=== PATIENT | female | born 2000 | race Caucasian/White ===

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

== ENCOUNTER 2024-08-24 08:22 | Outpatient (AMB) | payer OTHER, SELFPAY ==
--- OUTSIDE RECORDS SUMMARY | 2024-08-24 08:28 | XMS_ITS ---
Author Organization [facility] Address [address] [place] [address] Care Team Providers Care Cell Installer Name Role Phone Kalpana Goodman Primary Care Provider Isabel Ribeiro [phone] REASON FOR VISIT buy formula 7 Encounters Encounter Location Date Provider Diagnosis [address] [address] 01/30/2024 Isabel Huntley Plan Of Treatment No Information Progress Notes * Summer STILESDOB: 2 (23 yo F)Acc No.[id number]:01/30/2024 Patient:?Summer Stiles :2000???Age:23 Y???Sex:Female Address:[address] [place], [address] * true * Date:? Generated for Henrryi antoinette/Pedrito/eTransmitting on:?08/24/2024 08:28 AM EDT
--- OUTSIDE RECORDS SUMMARY | 2024-08-24 08:28 | XMS_ITS | Patient Health Record ---
Author Organization [facility] Megan [place] Address [address] [place] [address] Care Team Providers Care Structural Manager Name Role Phone Kalpana Goodman Primary Care Provider Isabel Ribeiro Unavailable [phone] Allergies Allergen (clinical drug ingredient) Drug/Non Drug Allergy documented on EMR Reaction Allergy Type Onset Date Status almond allergenic extract almonds (uncoded) Unknown Allergy Active apple allergenic extract apples (uncoded) Unknown Allergy Active Reason For Referral No Information Medications Medication SIG (Take, Route, Frequency, Duration) Notes Start Date End Date Status Ciclopirox Olamine 0.77 % 1 application Externally Twice a day to skin of feet including between the toes for 30 days Active Social History Tobacco Use: Social History Observation Description Date Details (start date - stop date) Former Smoker NA - NA Tobacco Use/Smoking Question Answer Notes Are you a: former smoker Additional Findings: Tobacco Non-User Current no n-smoker Tobacco use other than smoking: Question Answer Notes Are you an other tobacco user? No Vital Signs Height 5ft 2in in 01/30/2024 Weight 128 lbs 01/30/2024 BMI 23.41 kg/m2 01/30/2024 Encounters Encounter Location Date Provider Diagnosis [facility] [address] 01/30/2024 Isabel Huntley Onychomycosis B35.1 and Tinea pedis of both feet B35.[address] [address] 01/30/2024 Isabel Huntley [facility] [address] [address] 04/30/2024 Isabel Huntley Assessments Encounter Date Diagnosis (ICD Code) Assessment Notes Treatment Notes Treatment Clinical Notes Section Notes 01/30/2024 Onychomycosis (ICD-10 - B35.1) 01/30/2024 Tinea pedis of both feet (ICD-10 - B35.3) Plan Of Treatment No Information Insurance Providers Payer Name Payer Address Payer Phone Subscriber Number Group Number Insured Name Patient Relationship to Insured Coverage Start Date Coverage End Date Blue Benefits [address] [address] [place] [address] [id number] Abdiaziz Mueller Child - Insured has Financial Responsibility Medical (General) History Medical History History ICD Code Anxiety covid-19
--- OUTSIDE RECORDS SUMMARY | 2024-08-24 08:29 | XMS_ITS ---
Author Organization [facility] Address [address] [place] [address] Care Team Providers Care Table Maker Name Role Phone Kalpana Goodman Primary Care Provider Isabel Ribeiro Unavailable [phone] Encounters Encounter Location Date Provider Diagnosis [address] [address] 04/30/2024 Isabel Huntley Plan Of Treatment No Information Progress Notes * Bailee STILESedeDOB: 2 (24 yo F)Acc No.[id number]:04/30/2024 Progress Note Patient:?Summer STILES Provider:?Isabel Huntley DPM :2000???Age:24 Y???Sex:Female D ate:04/30/2024 Address[address] [facility] Pcp:Kalpana Goodman Subjective: * Chief Complaints: * ??? * Medical History:? Objective: * Vitals:? Assessment: Plan: * Treatment: * Images: * The named appointment provid er may or may not be the originator of this progress note, and it is not deemed complete until electronically signed by the appointment provider. Sign off status: Pending * Provider:?Isabel Huntley DPM Date:? Generated for Marcella curry/Pedrito/eTransmitting on:?08/24/2024 08:28 AM EDT
--- OUTSIDE RECORDS SUMMARY | 2024-08-24 08:29 | XMS_ITS ---
Author Organization [facility] Address [address] [place] [address] Care Team Providers Care Record Maker Name Role Phone Kalpana Goodman Primary Care Provider Isabel Ribeiro [phone] REASON FOR VISIT NS 04/30/24 Encounters Encounter Location Date Provider Diagnosis [address] [address] 04/30/2024 Isabel Huntley Plan Of Treatment No Information Progress Notes * Summer STILESDOB: 2 (24 yo F)Acc No.[id number]:04/30/2024 Patient:?Summer STILES :2000???Age:24 Y???Sex:Female Address:[address] [place], [address] * true * Date:? Generated for Printi ng/Pedrito/eTransmitting on:?08/24/2024 08:28 AM EDT
--- OUTSIDE RECORDS SUMMARY | 2024-08-24 08:29 | XMS_ITS | Clinical Summary ---
Author Organization [place] [address] [facility] Address [address] [place], [place] [address] [address] Phone Care Team Providers Care Project Manager Retail Name Role Phone Physician, No Pcp Primary Care Provider Unavaila ble Allergies No known active allergies Medications hydrOXYzine HCL (ATARAX) 25 mg tablet Take 1 tablet (25 mg total) by mouth. 4 Active FLUoxetine (PROzac) 10 mg capsule Take 1 capsule (10 mg total) by mouth. 4 Active ciclopirox (LOPROX) 0.77 % cream 1 APPLICATION EXTERNALLY TWICE A DAY TO SKIN OF FEET INCLUDING BETWEEN THE TOES 30 DAYS 4 Active levonorgestrel- ethinyl estradiol (AVIANE,ALESSE) 0.1-20 mg-mcg per tablet Take 1 tablet by mouth 1 (one) time each day. Pt may skip the placebo week up to 3 times per year 28 tablet 13 5 08/13/19 26 Active Encounters Date Type Department Care Team Description 08/13/2024 2:30 PM EDT [facility] [address] [place] [phone] Tere Lindsey CNM control counseling (Primary Dx) 06/12/2024 2:15 PM EST [facility] [address] [place] [phone] Tere Lindsey CNM Encounter for annual physical examination excluding gynecological examination in a patient older than 17 years (Primary Dx); Irregular periods from Last 3 Months Family History Medical History Relation Name Comments No Known Problems Father Stroke Maternal Grandfather No Known Problems Mother Stroke Paternal Grandfather Relation Name Status Comments Father Alive Maternal Grandfather Maternal Grandmother Mother Alive Paternal Grandfather Paternal Grandmother Alive Social History Tobacco Use Types Packs/Day Years Used Date Smoking Tobacco: Never Smokeless Tobacco: Never Tobacco Cessation:Counseling Given: Not Answered Alcohol Use Standard Drinks/Week Comments Yes 0 (1 standard drink = 0.6 oz pur e alcohol) socially Comments No Sex and Gender Information Value Date Recorded Sex Assigned at Not on file Legal Sex Female 11:40 AM EDT Gender Identity Not on file Sexual Orientation Not on file Obstetrics History Para Term AB IAB SAB Ectopic Multiple Livin g Live Births 0 0 0 0 0 0 0 0 0 0 0 Last Filed Vital Signs Vital Sign Reading Time Taken Comments Blood Pressure 128/82 08/13/2024 2:35 PM EDT Pulse 92 08/13/2024 2:35 PM EDT Temperature - - Respiratory Rate 18 08/13/2024 2:35 PM EDT Oxygen Saturation - - Inhaled Oxygen Concentration - - Weight 60.4 kg (133 lb 3.2 oz) 08/13/2024 2:35 P M EDT Height 157.5 cm (5' 2 ) 08/13/2024 2:35 PM EDT Body Mass Index 24.36 08/13/2024 2:35 PM EDT Plan of Treatment Health Maintenance Due Date Last Done Comments Meningococcal B Vaccine (1 of 2 - Standard) 2017 HPV Vaccines (3 - 3-dose series) 05/29/2019 12/31/2018, 11/26/2018 Hepatitis A Vaccines (2 of 2 - 2-dose series) 05/29/2019 11/26/2018 DTaP,Tdap,and Td Vaccines (7 - Td or Tdap) 07/15/2022 07/15/2012, 03/15/2006, 01/29/2003, Additional history exists COVID-19 Vaccine ( - season) 2023 11/12/2020, 10/05/2020 Depression Screening 02/01/2024 HIV Screening 02/01/2024 Hepatitis C Screening 02/01/2024 Social Influencers of Health Screening 02/01/2024 Influenza Vaccine (Season Ended) 2024 05/10/2009 Gonorrhea/Chlamydia Screening 06/12/2025 06/12/2024 Cervical Cancer Screening: Pap Smear 06/13/2027 06/12/2024, 06/12/2024 Hepatitis B Vaccines Completed 02/26/2002, 2001, 2001 Pneumococcal Vaccine: Pediatrics (0 to 5 Years) and At-Risk Patients (6 to 64 Years) Completed 09/01/2002, 02/26/2002, 2001, Additional history exists IPV Vaccines Completed 03/15/2006, 11/07, 2001, Additional history exists MMR Vaccines Completed 03/15/2006, 04/28/2002 Varicella Vaccines Completed 03/15/2006, 04/28/2002 Meningococcal ACWY Vaccine Completed 11/04/2017, HIB Vaccines Aged Out No longer eligi ble based on patient's age to complete this topic RSV Immunization Patients Under 20 months Aged Out No longer eligible based on patient's age to complete this topic Procedures Procedure Name Priority Date/Time Associated Diagnosis Comments THYROID STIMULATING HORMONE Routine 10/2024 3:08 PM EST Irregular menstrual cycle BASIC METABOLIC PANEL Routine 06/12/2024 3:08 PM EST Irregular periods TESTOSTERONE FREE, BIOAVAILABLE AND TOTAL Routine 06/12/2024 3:08 PM EST Irregular periods DEHYDROEPIANDROSTERONE Routine 3:08 PM EST Irregular periods PROLACTIN Routine 06/12/2024 3:08 PM EST Irregular periods FOLLICLE STIMULATING HORMONE Routine 10/2024 3:08 PM EST Irregular periods PAP SMEAR Routine 06/12/2024 2:52 PM EST Encounter for annual physical examination excluding gynecological examination in a patient older than 17 years HPV WITH REFLEX GENOTYPE Routine 025 2:52 PM EST Encounter for annual physical examination excluding gynecological examination in a patient older than 17 years CHLAMYDIA TRACHOMATIS AND NEISSERIA GONORRHOEAE PCR Routine 06/12/2024 2:52 PM EST Encounter for annual physical examination excluding gynecological examination in a patient older than 17 years from Last 3 Months Results * (ABNORMAL) Testosterone free, bioavailable and total (06/12/2024 3:08 PM EST) Pathologist [facility] [place] Testosterone 24 9 - 48 ng/dL LAB CHEMISTRY METHOD 06/12/2024 8:05 PM [facility] Testosterone, Free 0.5 0.0 - 0.5 ng/dL LAB CHEMISTRY METHOD 06/12/2024 8:05 PM [facility] Testosterone, Bioavailable 11(H) 1 - 9 ng/dL LAB CHEMISTRY METHOD 06/12/2024 8:05 PM [facility] Sex Hormone Binding 30.8 See Comment nmol/L LAB CHEMISTRY METHOD 06/12/2024 8:05 PM [facility] Comment: FEMALES: ??pre-menopausal ?? 10.8 - >180 ??post-menopausal ??23.2 - 159.1 MALES: ?? 21-49 years ? 14.6 - 94.6 ?? 50-89 years ? 21.6 - 113.1 CHILDREN: ??No established reference range Over the counter supplements containing high doses of biotin may interfere with this assay. ??If interference is suspected, patients should be retested after refraining from biotin supplements for 72 hours. Albumin 4.2 3.2 - 5.0 g/dL LAB CHEMISTRY METHOD 06/12/2024 8:05 PM [facility] Blood Venous blood specimen / Unknown Venipuncture / Unknown 06/12/2024 3:08 PM EST 06/12/2024 3:08 PM EST Tere Lindsey CNM LAB BLOOD ORDERABLES Final R esult [facility] [address] [place] [address], * Prolactin (06/12/2024 3:08 PM EST) [facility] Prolactin 25.50 See Comment ng/mL LAB CHEMISTRY METHOD 06/12/2024 7:56 PM EST [facility] Comment: Prolactin Reference Ranges (ng/mL) ??Non ?2.2 - ??30.3 ? 8.1 - 347.6 ??Postmenopausal 0.7 - ??31.5 Blood Venous blood specimen / Unknown Venipuncture / Unknown 06/12/2024 3:08 PM EST 06/12/2024 3:08 PM EST Tere Lindsey [facility] LAB BLOOD ORDERABLES Final R esult Performing Organization Address [facility] de Phone Number [facility] [address] [place] [address], * Dehydroepiandrosterone (06/12/2024 3:08 PM EST) [facility] DHEA (Dehydroepiandroster one), Unconjugated, LC/MS/MS 694 ng/dL 06/20/2024 10:36 AM EDT [facility] Comment: Adult Female Reference Ranges ??Pre-Menopausal ?Mid Follicular: 385-1143 ng/dL ?Surge: ?345-2030 ng/dL ?Mid Luteal: ? 414-1295 ng/dL ??Post-Menopausal ?77-851 ng/dL This test was developed and its analytical performance characteristics have been determined by [facility]. It has not been cleared or approved by the FDA. This assay has been validated pursuant to the CLIA regulations and is used for clinical purposes. Test Performed at: [facility] [address] ??[id number] ? I Kevin SOTOMAYOR, PhD, LAURIE Blood Venous blood specimen / Unknown Venipuncture / Unknown 06/12/2024 3:08 PM EST 06/12/2024 3:08 PM EST Tere DENNIS LAB BLOOD ORDERABLES Final R esult [facility] [address] [place] [address] * Thyroid stimulating hormone (06/12/2024 3:08 PM EST) TSH 1.20 0.40 - 4.00 mcIU/mL LAB CHEMISTRY METHOD 06/12/2024 8:04 PM EST [facility] Blood Venous blood specimen / Unknown Venipuncture / Unknown 06/12/2024 3:08 PM EST 06/12/2024 3:08 PM EST Tere DENNIS LAB BLOOD [facility]ABLES [facility] [address] [place] [address], * Follicle stimulating hormone (06/12/2024 3:08 PM EST) Follicle Stimulating Hormone 5.9 See Comment mIU/mL LAB CHEMISTRY METHOD 06/12/2024 7:56 PM EST [facility] Comment: FSH REFERENCE RANGES (MIU/ML) FEMALES NORMALLY MENSTRUATING: FOLLICULAR PHASE ??2.3 - 12.6 MIDCYCLE PEAK ? 5.2 - 17.5 LUTEAL PHASE ?1.7 - ??9.5 POSTMENOPAUSAL: ON HRT ?5.9 - ??72.8 UNTREATED ?12.7 - 132.2 Blood Venous blood specimen / Unknown Venipuncture / Unknown 06/12/2024 3:08 PM EST 06/12/2024 3:08 PM EST us Tere DENNIS LAB BLOOD ORDERABLES Final R esult [facility] [address] [place] [address], [place] [phone] * Basic metabolic panel (06/12/2024 3:08 PM EST) Pathologist [facility] [place] Sodium 138 133 - 145 mmol/L LAB CHEMISTRY METHOD 06/12/2024 7:56 PM [facility] Potassium 4.0 3.5 - 5.5 mmol/L LAB CHEMISTRY METHOD 06/12/2024 7:56 PM [facility] Chloride 105 96 - 110 mmol/L LAB CHEMISTRY METHOD 06/12/2024 7:56 PM [facility] CO2 27 21 - 32 mmol/L LAB CHEMISTRY METHOD 06/12/2024 7:56 PM [facility] Anion Gap 6 3 - 11 LAB CHEMISTRY METHOD 06/12/2024 7:56 PM [facility] Glucose 95 70 - 100 mg/dL LAB CHEMISTRY METHOD 06/12/2024 7:56 PM [facility] BUN 14 5 - 25 mg/dL LAB CHEMISTRY METHOD 06/12/2024 7:56 PM [facility] Creatinine 0.67 0.50 - 1.10 mg/dL LAB CHEMISTRY METHOD 06/12/2024 7:56 PM [facility] eGFR 126 >=60 mL/min/1. 73m2 LAB CHEMISTRY METHOD 06/12/2024 7:56 PM [facility] Comment:Calculation based on the??Chronic Kidney Disease Epidemiology Collaboration (CKD-EPI) equation refit??without adjustment for race. BUN/Creatinine Ratio 20.9 LAB CHEMISTRY METHOD 06/12/2024 7:56 PM [facility] Calcium 10.0 8.5 - 10.5 mg/dL LAB CHEMISTRY METHOD 06/12/2024 7:56 PM EST [facility] Blood Venous blood specimen / Unknown Venipuncture / Unknown 06/12/2024 3:08 PM EST 06/12/2024 3:08 PM EST Tere Lindsey CNM LAB BLOOD ORDERABLES Final R esult [facility] [address] [place] [address], [place] [phone] * HPV with reflex genotype (06/12/2024 2:52 PM EST) HPV Negative Negative LAB MICROBIOLOGY METHOD 06/17/2024 1:55 PM EDT [facility] Brushing/Spatula Cervix uteri structure / Unknown 06/12/2024 2:52 PM EST 06/16/2024 3:20 PM EDT Tere Lindsey CNM LAB MOLECULAR DIAGNOSTICS OR DERABLES Final Result Performing Organization Address [facility]/[employer]IP [employer] de Phone Number [facility] [address] [place] [address], [place] [phone] * Chlamydia trachomatis and Neisseria gonorrhoeae molecular study (06/12/2024 2:52 PM EST) Neisseria gonorrhoeae PCR Negative Negative LAB MOLECULAR DIAGNOSTICS METHOD 06/13/2024 8:46 AM EST [facility] Chlamydia trachomatis PCR Negative Negative LAB MOLECULAR DIAGNOSTICS METHOD 06/13/2024 8:46 AM EST [facility] Swab Vaginal structure / Unknown Non-blood Collection / Unknown 06/12/2024 2:52 PM EST 06/12/2024 2:52 PM EST Tere Lindsey CNM LAB MICROBIOLOGY - GENERAL O RDERABLES Final Result [facility] [address] [place] [address], [place] [phone] * (ABNORMAL) Pap smear (06/12/2024 2:52 PM EST) Interpretation Atypical squamous cells of undetermined significance(A) 06/16/2024 3:20 PM EDT [facility] General Categorization Epithelial cell abnormality, see interpretation 06/16/2024 3:20 PM EDT [facility] Specimen Adequacy Satisfactory for evaluation, endocervical/tra nsformation zone component absent 06/16/2024 3:20 PM EDT [facility] Pap Methodology Liquid Based Pap Test 06/16/2024 3:20 PM EDT [facility] Disclaimer The Pap test is a screening test which carries an inherent false negative rate. These test results should be correlated with the patient's clinical findings and history. This Pap test was processed using an automated screening system. Technical cytopathology services provided by [facility], at [address] [place] [address] (CLIA # [id number]/[place] MD, Grain Unloader.) 06/16/2024 3:20 PM EDT [facility] Console Pap Interpretation Reported 06/16/2024 3:20 PM [facility] Brushing/Spatula Cervix uteri structure / Unknown 06/12/2024 2:52 PM EST 06/12/2024 2:52 PM EST Tere Lindsey CNM LAB CYTOLOGY ORDERABLES Nae l Result [facility] [address] [place] [address], [place] [phone] from Last 3 Months Insurance [employer] [facility] Care Teams Project Manager Retail Relationship Specialty Start Date End Date Physician, No Pcp PCP - General 03/25/24
--- NOTE | 2024-08-24 08:39 | AM.OFFWIN_ITS ---
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 - Symptoms started a week ago, correlati ng with elevated pollen levels. - The patient denies a history of season al allergies causing significant ear pain. - No fever, respiratory distress, or gas trointestinal issues reported. - [id number] medication usage incl uded Benadryl?with sedation side effects?and Zyrtec, which provided relief without drowsiness. - Ear discomfort occasionally perceived as fullness or clogging, sensitive to changes in elevation. Physical Exam General: Cooperative, healthy appearing, comfortable and no acute distress Orientation/consciousness: Patient oriented x3 Limitations: No limitations Head: Normal to inspection, Ears: Hearing grossly normal bilaterally,, external ears normal and TM's normal bilaterally Nose: Normal external nose present, Normal nares present and clear nasal discharge present Face and sinus: Normal facial exam and Yes sinuses nontender Mouth: Normal oral and palatal mucosa present and moist mucous membranes Throat: Yes tonsils normal, Yes uvula midline. Posterior oropharynx erythema with some cobblestoning Eyes: Appearance normal, both eyes and all related structures Neck: Normal visual inspection Respiratory: Clear to auscultation bilaterally. Normal respiratory effort, able to speak in complete sentences, no respiratory distress, not tachypneic, no tripod positioning and no use of accessory muscles Cardiovascular: Regular rate and rhythm. Normal S1 and S2 Skin: No rashes or lesions noted Neuro: Patient oriented x3 Extremities: Normal to inspection and Yes no clubbing, cyanosis or edema PFSH Social History Patient Tobacco Use Status: Never used Tobacco Review of Systems Const All systems reviewed & are unremarkable except as noted in HPI and below Physical Exam Vital Signs: Last Vital Signs Temp 98.2 F 08/24/24 08:41 Pulse 86 08/24/24 08:41 BP 120/80 08/24/24 08:41 Pulse Ox 98 08/24/24 08:41 Oxygen Delivery Method Room Air 08/24/24 08:41 BMI result Body Mass Index 25.8 Assessment & Plan Assessment & Plan (1) Allergic rhinitis: Code(s): J30.9 - Allergic rhinitis, unspecified Qualifiers: Allergic rhinitis trigger: other Allergic rhinitis seasonality: seasonal Qualified Code(s): J30.89 - Other allergic rhinitis Plan: VSS, pt well appearing and PE remarkable for cobblestoning. Symptoms of allergic rhinitis and viral upper respiratory infection will be managed with continuous use of Zyrtec to minimize allergy symptoms without sedation. Flonase will be prescribed to reduce sinus inflammation, administered with proper intranasal technique, with an emphasis on maximizing insurance coverage with a 90-day supply. A short course of oral prednisone will be given to manage systemic inflammation and head congestion, advised for morning administration. The patient was counseled on medication usage, including the benefits and expected outcomes. No additional diagnostics or interventions were recommended given the nature of the presenting conditions. Patient was informed and verbally consented to the use of an ambient scribe for clinic note documentation during this visit (2) URI, acute: Code(s): J06.9 - Acute upper respiratory infection, unspecified Plan: as above Medications: New fluticasone propionate 50 mcg/actuation administer into each nostril 1 spray intranasal Q12H 90 days 48 grams 0RF prednisone 20 mg PO QAM 5 tabs 0RF Coding Level of Care Code New Pt Level 3 (75306) Diagnoses Seasonal allergic rhinitis due to other allergic trigger J30.89 Allergic rhinitis trigger: other Allergic rhinitis seasonality: seasonal URI, acute J06.9
[2024-08-24 08:41] VITALS: BP 120/80; PULSE 86; TEMP 36.8; O2SAT 98; BMI 25.8
== END 2024-08-24 09:18 | disposition home or self-care (01) ==
PROVIDERS: PCP Pediatrics; Visit Provider Physician Assistant
DX: J30.89 Other allergic rhinitis (principal); J06.9 Acute upper respiratory infection, unspecified

== ENCOUNTER → 2024-08-24 08:22 | Outpatient (BNVA) | payer OTHER, SELFPAY | PROVIDERS: PCP Pediatrics; Visit Provider Physician Assistant ==

== ENCOUNTER 2025-02-22 08:03 | Outpatient (AMB) | payer OTHER, SELFPAY ==
[2025-02-22 08:37] VITALS: BP 120/78; PULSE 89; TEMP 36.8; O2SAT 99; BMI 26.7
--- NOTE | 2025-02-22 08:37 | MHC.OFFWIV ---
Intake Vital Signs 02/22/25 08:37 Height 5 ft 2 in Weight 146 lb BMI 26.7 BP 120/78 Blood Pressure Location Lt brachial Position Sitting Pulse 89 Pulse Source Pulse Oximeter Temp 98.2 F Temp Source Oral Pulse Oximetry (%) 99 Oxygen Delivery Method Room Air Intake Visit Reasons: [id number]?uti Intake Note: Patient presents c/o urinary symptoms x1 week. Patient had virtual visit with provider & was prescribed Bactrim x3 days which she completed but doesn't feel it is completely gone. Patient Tobacco Use Status: Never used Tobacco Allergies nut - unspecified (NUTS) Allergy (Mild, Unverified 02/22/25 08:48) RASH Do you need a note to return to daycare/school/sports/work: Yes HPI HPI Comments History of Present Illness Details 24-year-old female presents to the walk-in clinic with urinary symptoms x1 week. She reports lower abdominal/pelvic pain, urinary urgency, and urinary frequency. She was evaluated via virtual visit at [facility] and prescribed Bactrim for 3 days with minimal symptom improvement. Denies fever, chills, nausea, or vomiting. She is sexually active with one male partner, does not use condoms. She is currently on combined oral contraceptives and has no concerns for or STI but requests testing for both today. Reports mild vaginal discharge described as thick and white with no associated itching. [facility] Medical History (Updated 02/22/25 @ 09:15 by Jessika Rock NP) Vaginitis and vulvovaginitis Social History Patient Tobacco Use Status: Never used Tobacco Review of Systems Const All systems reviewed & are unremarkable except as noted in HPI and below Physical Exam Vital Signs: Last Vital Signs Temp 98.2 F 02/22/25 08:37 Pulse 89 02/22/25 08:37 BP 120/78 02/22/25 08:37 Pulse Ox 99 02/22/25 08:37 Oxygen Delivery Method Room Air 02/22/25 08:37 BMI result Body Mass Index 26.7 Const General: no acute distress Nutritional Appearance: well nourished Orientation/consciousness: patient oriented x3 GI Inspection: Yes normal to inspection Palpation (GI): Soft to palpation, not firm, Tenderness to palpation present (GI) suprapubicly, no guarding, not rigid and No hepatosplenomegaly present Auscultation: normal bowel sounds General: Yes no CVA tenderness External Female Exam: erythema and externally tender Speculum Exam - Vagina: abnormal vaginal discharge white and erythematous Speculum Exam - Cervix: Cervical os open and nontender Bimanual exam- vagina & uterus: uterine size normal, No Cervical tenderness present and no cervical motion tenderness OB/external & speculum: Cervical os open Back/Spine/Pelvis Back: no CVA tenderness Neuro General: patient oriented x3, gait normal and moves all extremities Psych Speech and movement: Normal speech and movement present Results AMB Urinalysis, Automated UA Leukoctes 0 Yaneli/uL Last Edit by Gwen Webster CMA on 02/22/25 08:48 UA Nitrite Negative Last Edit by Gwen Webster CMA on 02/22/25 08:48 UA Urobilinogen 0.2 mg/dL Last Edit by Gwen Webster CMA on 02/22/25 08:48 UA Protein 0 mg/dL Last Edit by Gwen Webster CMA on 02/22/25 08:48 UA pH 6.0 Last Edit by Gwen Webster CMA on 02/22/25 08:48 UA Blood 0 Morgan/uL Last Edit by Gwen Webster CMA on 02/22/25 08:48 UA Specific Gaston 1.015 Last Edit by Gwen Webster CMA on 02/22/25 08:48 UA Ketone Negative Last Edit by Gwen Webster CMA on 02/22/25 08:48 UA Bilirubin 0 mg/dL Last Edit by Gwen Webster CMA on 02/22/25 08:48 UA Glucose 0 mg/dL Last Edit by Gwen Webster CMA on 02/22/25 08:48 AMB Test Urine AMB Test Urine Negative Last Edit by Rhonda Dangelo CMA on 02/22/25 09:41 Results Reviewed Results Reviewed: Laboratory Last Values Urine pH (Auto) 6.0 02/22/25 08:47 Specific Gaston (Auto) 1.015 02/22/25 08:47 Urine Protein (Auto) 0 mg/dL 02/22/25 08:47 Glucose (UA)(Auto) 0 mg/dL 02/22/25 08:47 Urine Ketones (Auto) Negative 02/22/25 08:47 Urine Blood (Auto) 0 Morgan/uL 02/22/25 08:47 Urine Nitrite (Auto) Negative 02/22/25 08:47 Urine Bilirubin (Auto) 0 mg/dL 02/22/25 08:47 Urine Urobilinogen (Auto) 0.2 mg/dL 02/22/25 08:47 Leukocyte Esterase (Auto) 0 Yaneli/uL 02/22/25 08:47 Tst Clinic Negative 02/22/25 09:37 Assessment & Plan Assessment & Plan (1) Vaginitis and vulvovaginitis: Code(s): N76.0 - Acute vaginitis Plan: DDx's: Vaginitis vs BV vs Fungal. STI testing: GC/CT, trichomonas. Exam today consistent with Fungal. Ordered Fluconazole for Q3D Urinalysis Negative today. Urine culture ordered. UA HCG negative today. Avoid sexual activity until results return and symptoms improve. Return precautions reviewed: fever, flank pain, worsening abdominal pain, vomiting. Orders: Orders Bacterial Vaginosis Panel Today Jessika Rock NP N76.0 - Acute vaginitis CT NG by PCR Vag/Cerv Today Jessika Rock NP N76.0 - Acute vaginitis AMB Urinalysis Automated Today Dai Lawrence PA-C Z13.9 - Encounter for screening, unspecified UA CC w/rflx Micro + Cult Today Jessika Rock NP N76.0 - Acute vaginitis AMB HCG Urine Test Today Jessika Rock NP N76.0 - Acute vaginitis Medications: New fluconazole 150 mg PO Q3D 3 tabs 2RF 3 days Jessika Rock NP N89.8 - Other specified noninflammatory disorders of vagina Coding Level of Care Code Est Pt Level 4 (58259) Diagnoses Vaginitis and vulvovaginitis N76.0 Time Spent (min) 20
== END 2025-02-22 09:59 | disposition home or self-care (01) ==
PROVIDERS: PCP Pediatrics; Visit Provider Nurse Practitioner Family
DX: Z13.9 Encounter for screening, unspecified (principal); N76.0 Acute vaginitis

== ENCOUNTER 2025-02-22 08:03 | Outpatient (REF) | payer OTHER, SELFPAY ==
[2025-02-22 11:46] LABS: Bacterial Vaginosis PCR NEGATIVE (Negative); Candida Group PCR DETECTED (Not Detect); Candida glab krusei PCR NOT DETECTED (Not Detect); Trichomonas vaginalis PCR NOT DETECTED (Not Detect)
[2025-02-22 12:17] LABS: CT PCR NOT DETECTED (Not Detect.); NG PCR NOT DETECTED (Not Detect.)
[2025-02-22 13:27] LABS: Appearance Urine Clear; Glucose Urine UA Negative (Negative); PH 5.5 (5.0-9.0); Specific Gravity - Urine 1.010 (1.005-1.025); UMIC TRIGGER UACC YES
[2025-02-22 13:40] LABS: UACC Culture Trigger YES
== END 2025-02-22 08:04 | disposition home or self-care (01) ==
LOC: HO.LAB 08:03
PROVIDERS: Nurse Practitioner Family; PCP Pediatrics
DX: N76.0 Acute vaginitis (principal)
CPT/HCPCS: 81001; 81003; 81025; 81515; 87086; 87491; 87591